=== PATIENT | male | born 1990 | race Caucasian/White ===

== ENCOUNTER 2023-11-28 12:05 | Emergency (ER) | payer SELFPAY ==
[2023-11-28 12:08] VITALS: BP 138/89
--- NOTE | 2023-11-28 13:01 | ED.GENMED ---
History of Present Illness
General
Chief Complaint: Crisis Evaluation
Source: patient, records and family
Exam Limitations: none
Time Seen by Provider: 11/28/23 12:32
Travel History
Have you had any contact with someone who has COVID-19?: No
Do you have any symptoms of coronavirus? Fever > 100 degrees, chills, cough, shortness of breath, sore throat, loss of taste or smell, muscle aches, or headache?: No
History of Present Illness
History of Present Illness:
33-year-old male mental illness, substance abuse, never been hospitalized, was at [place] today due to delusions, had a negative medical workup, found to have cocaine and amphetamine in the urine discharged to home came to our crisis to be
evaluated sent back to me for medical clearance and be CARES evaluation patient is resting cooperative, oriented to person and place, does admit to hallucinations at times, father and sister with him providing a lot of the history
Past History
Past History
ED Past Medical History: Psychiatric
Social History
Tobacco: Non-smoker
Alcohol: None
Drug: Cocaine and Other (Amphetamine)
Personal: Single
Living: with family
Employment: Not employed
Review of Systems
Review of Systems
All Other Systems: Not applicable
Constitutional: Reports sleep disturbance
Phy Exam
Physical Exam
Physical Exam:
Physical Exam
General: no apparent distress, not acutely ill
Neck: No jaw
Heart: Regular
Lungs: no acute respiratory distress. clear bilaterally
Neuro: alert and oriented. no focal neurological deficits
Skin: no rash
Psychiatric: Cooperative flat affect denies hallucinations not suicidal
Extremities: no edema.
Course
Vital Signs
Initial and Last Documented VS:
Initial Vital Signs
Temp Pulse Resp BP Pulse Ox
98.4 F 106 16 138/89 98
11/28/23 12:08 11/28/23 12:08 11/28/23 12:08 11/28/23 12:08 11/28/23 12:08
Last Documented Vital Signs
Temp Pulse Resp BP Pulse Ox
98.4 F 106 16 138/89 98
11/28/23 12:08 11/28/23 12:08 11/28/23 12:08 11/28/23 12:08 11/28/23 12:08
MDM/Problems Addressed
Differential Diagnosis Includes:
Substance abuse mental illness
MDM/Problems Addressed:
Delusions
Chronic conditions affecting care:
Substance abuse mental illness
*Pulse Oximetry
Patient hypoxic: no
*Critical Care Note
Total Time (30-74mins, 75-104mins- exclusive of procedures): Not Applicable
Data Reviewed
Review of Other/Old Records Reveals: Labs (Labs from today from [facility] negative electrolytes negative aspirin negative salicylates no alcohol positive UDS for cocaine and amphetamine)
Update Note
Update Note:
Update patient cooperative vital signs stable resting comfortably already cleared from crisis by [facility] reviewed with our crisis they sent him here to see [facility] which I will try to arrange
5:10 PM patient awake alert nontoxic cooperative [facility] is going to be able to place him
ED Attending Note
-
Portions of this chart may have been created with voice recognition software.� Occasional wrong word or��sound alike� substitutions may have occurred due to the inherent limitations of voice recognition software.
Discharge Plan
Departure
Patient Disposition: Acute Rehab Facility
Date of Disposition: 11/28/23
Time of Disposition: 17:11
Patient with high blood pressure during this ER visit?: No
Condition: Good
Discharge Problem:
Amphetamine use
Referrals:
Maya Martinez MD [Family Provider] -
[2023-11-28 17:44] VITALS: BP 124/62
== END 2023-11-28 17:49 ==
LOC: EMR 12:05
PROVIDERS: EMERGENCY PHYSICIAN Emergency Medicine; FAMILY PHYSICIAN Internal Medicine
DX: F15.90 Other stimulant use, unspecified, uncomplicated (principal)
CPT/HCPCS: 99282